=== PATIENT | male | born 1985 | race African-American/Black ===

== ENCOUNTER 2017-04-27 15:58 | Emergency (ER) | payer OTHER ==
[~2017-04-27] VITALS: Ht 167.6 cm; Wt 69.0 kg
[~2017-04-27 15:58] MED LIST: PRO-AIR; VITAMIN D
[2017-04-27 16:10] VITALS: Ht 167.6 cm; Wt 69.0 kg
[2017-04-27] MEDS ORDERED: LIDOCAINE 2% (MDV) 20 ML INJ INJ ONE (19:00)
[2017-04-27] MEDS ORDERED: CLIN-73 PO (20:01)
[2017-04-27] MEDS ORDERED: IBUP-1542 PO (20:02)
--- NOTE | 2017-04-27 21:58 | ERD ---
ER Documentation Chief Complaint Date/Time DATE: 04/27/17 TIME: 21:54 Chief Complaint abscess to the buttock area HPI 31-year-old male patient with no significant past medical history presents to the ED complaining of an abscess to the left buttocks area that has worsening pain today started intermittently for 2 weeks. States that he had an abscess that was drained 2 weeks ago but came back today. Reports that he feels like it is filling up with pus. Denies any melena, bloody stools, abdominal pain, nausea, vomiting, fever, chills. Denies any pain with defecation. States that he went to the urgent care earlier today and had received an injection of antibiotics but did not get his abscess drained. ROS All systems reviewed and are negative except as per history of present illness. Medications Home Meds Active Scripts Ibuprofen* (Motrin*) 600 Mg Tab, 600 MG PO Q6, #30 TAB Prov:EMRE FULLER PA-C 04/27/17 Clindamycin Hcl* (Clindamycin Hcl*) 300 Mg Capsule, 300 MG PO TID for 7 Days, CAP Prov:EMRE FULLER PA-C 04/27/17 Reported Medications [Vitamin D] No Conflict Check 05/30/16 [Pro-Air] No Conflict Check 05/30/16 Allergies Allergies: Coded Allergies: Sulfa (Sulfonamide Antibiotics) (Verified Allergy, Intermediate, 05/30/16) PMhx/Soc History of Surgery: Yes Hx Neurological Disorder: No Hx Respiratory Disorders: Yes (ASTHMA) Hx Cardiac Disorders: No Hx Psychiatric Problems: No Hx Miscellaneous Medical Probl: Yes (VITAMIN D DEFICIENCY) Hx Alcohol Use: No Hx Substance Use: Yes (CANNIBIS) Hx Tobacco Use: No Smoking Status: Never smoker Physical Exam Vitals Vital Signs Date Time Temp Pulse Resp B/P Pulse Ox O2 Delivery O2 Flow Rate FiO2 04/27/17 16:10 98.7 77 20 104/56 100 Physical Exam Const: [id number], well-nourished. In no acute distress. Head: Atraumatic, normocephalic Eyes: Normal Conjunctiva without injection. No purulent discharge. ENT: Normal external ear, nose. Moist oropharynx without tonsillar exudates. Non -erythematous pharynx. Uvula midline. No drooling. No trismus. Neck: No cervical midline tenderness. Full range of motion. No meningismus. No cervical lymphadenopathy. No JVD. Resp: Clear to auscultation bilaterally. No wheezing, rhonchi, rales, or crackles. No accessory muscle use. No retractions. Cardio: Regular rate and rhythm. No murmurs, rubs or gallops. Abd: Soft, nontender, non distended. Normal bowel sounds. No palpable masses. No rebound tenderness. No guarding. Negative McBurney's point. Negative psoas sign. Negative obturator sign. 2 x 2 centimeter fluctuant abscess noted in the left inner buttocks with no concern for tracking. No fluctuance surrounding the anus. Slight induration surrounding the fluctuant area. No erythema or edema. No anal tenderness. Skin: No petechiae or rashes Back: No midline tenderness. No CVA tenderness. Ext: No cyanosis, or edema. Neur: Awake and alert. Normal gait. Normal coordination. Psych: Normal Mood and Affect Results 24 hrs Current Medications Medications (Trade) Dose Ordered Sig/Marbin Route PRN Reason Start Time Stop Time Status Last Admin Dose Admin Lidocaine (Xylocaine 2% (Mdv) 20 ml) 20 ml ONCE ONCE INJ 04/27/17 19:00 04/27/17 19:01 DC Procedures/MDM 1-year-old male patient with no significant past medical history presents the ED complaining of an abscess to the left buttocks area. Patient is afebrile nontoxic appearing. Patient has normal vital signs. Patient gave consent to perform incision and drainage. 11 blade scalpel used to make a small incision. Abscess Incision and Drainage with irrigation by me: Location: Left Inner Buttocks Anesthesia: [3 cc Local 2% Lidocaine] Technique: [Irrigated. Disrupted loculations w/ instrumentation ] Packing: [None] Complications: [Neurovascularly intact post procedure] Copious purulent discharge drained from the abscess. Clean dressing applied. Clindamycin was prescribed to patient. Instructed patient to return to the ED sooner for any worsening symptoms. Follow up with primary care physician or return to the ED in 2 days for a wound check. Patient's questions were answered. Patient understood and agreed with discharge plan. Discharge medications: Clindamycin, Ibuprofen Follow up with primary care physician in 2 days. Instructed patient to return to the ED sooner for any worsening symptoms. Patient's questions were answered. Patient understood and agreed with discharge plan. Patient discharged stable. Departure Diagnosis: Primary Impression: Abscess Condition: Stable Patient Instructions: Abscess, Incision And Drainage Referrals: CARLY EDWARD MD (PCP) [facility] YOU HAVE RECEIVED A MEDICAL SCREENING EXAM AND THE RESULTS INDICATE THAT YOU DO NOT HAVE A CONDITION THAT REQUIRES URGENT TREATMENT IN THE EMERGENCY DEPARTMENT. FURTHER EVALUATION AND TREATMENT OF YOUR CONDITION CAN WAIT UNTIL YOU ARE SEEN IN YOUR DOCTORS OFFICE WITHIN THE NEXT 1-2 DAYS. IT IS YOUR RESPONSIBILITY TO MAKE AN APPOINTMENT FOR FOLOW-UP CARE. IF YOU HAVE A PRIMARY DOCTOR --you should call your primary doctor and schedule an appointment IF YOU DO NOT HAVE A PRIMARY DOCTOR YOU CAN CALL OUR PHYSICIAN REFERRAL HOTLINE AT IF YOU CAN NOT AFFORD TO SEE A PHYSICIAN YOU CAN CHOSE FROM THE FOLLOWING [facility] [address] [facility] [address] [facility] [address] [facility] [address] [facility] [address] [facility]. [address] [facility]. [facility] YOU HAVE RECEIVED A MEDICAL SCREENING EXAM AND THE RESULTS INDICATE THAT YOU DO NOT HAVE A CONDITION THAT REQUIRES URGENT TREATMENT IN THE EMERGENCY DEPARTMENT. FURTHER EVALUATION AND TREATMENT OF YOUR CONDITION CAN WAIT UNTIL YOU ARE SEEN IN YOUR DOCTORS OFFICE WITHIN THE NEXT 1-2 DAYS. IT IS YOUR RESPONSIBILITY TO MAKE AN APPOINTMENT FOR FOLOW-UP CARE. IF YOU HAVE A PRIMARY DOCTOR --you should call your primary doctor and schedule and appointment IF YOU DO NOT HAVE A PRIMARY DOCTOR YOU CAN CALL OUR PHYSICIAN REFERRAL HOTLINE AT . IF YOU CAN NOT AFFORD TO SEE A PHYSICIAN YOU CAN CHOSE FROM THE FOLLOWING [facility]: [facility] [address] [place] [address] [facility] [address] [place] [address] [facility] [address] [place] [address] [facility] Additional Instructions: Follow up in 2 days in your clinic for wound check. Call your primary care doctor TOMORROW for an appointment during the next 2-3 days.See the doctor sooner or return here if your condition worsens before your appointment time. EMRE FULLER PA-C Apr 27, 2017 21:58
== END 2017-04-27 20:15 | disposition home or self-care (01) ==
LOC: FTE 15:58
DX: L02.31 Cutaneous abscess of buttock (principal); J45.909 Unspecified asthma, uncomplicated
CPT/HCPCS: 10060; Z7502; Z7610

== ENCOUNTER 2017-09-05 12:33 | Emergency (ER) | END 2017-09-05 13:08 | disposition left against medical advice (07) ==

== ENCOUNTER 2017-09-05 13:59 | Emergency (ER) | END 2017-09-05 17:38 | disposition home or self-care (01) ==